=== PATIENT | male | born 1985 | race Caucasian/White ===

== ENCOUNTER 2018-07-30 20:45 | Emergency (ER) | payer SELFPAY ==
--- NOTE | 2018-07-30 21:20 | RAD ---
Exam:Left shoulder 3 views HISTORY: Pain COMPARISON: None FINDINGS: Anterior-inferior dislocation of the humeral head with respect to the glenoid. Postreductio n films are recommended. IMPRESSION: Dislocation. Postreduction films are recommended.
[2018-07-30] MEDS ORDERED: Ketamine 50 MG/ML (10ML VIAL) ONE (21:37)
--- NOTE | 2018-07-30 22:34 | RAD ---
Exam:One view left shoulder HISTORY: Status post reduction COMPARISON: 07/30/2018 FINDINGS: Based on single image, there appears to be interval reduction. No fracture. IMPRESSION: There appears to be interval reduction based on the single image.
== END 2018-07-30 23:55 | disposition home or self-care (01) ==
LOC: MADERS 20:45
DX: S43.015A Anterior dislocation of left humerus, initial encounter (principal); S43.035A Inferior dislocation of left humerus, initial encounter; F17.210 Nicotine dependence, cigarettes, uncomplicated; X58.XXXA Exposure to other specified factors, initial encounter
CPT/HCPCS: 23650; 99152

== ENCOUNTER 2023-07-20 08:10 | Emergency (ER) | payer OTHER, SELFPAY | END 2023-07-20 08:46 | disposition home or self-care (01) | LOC: MADERS 08:10 | DX: J02.9 Acute pharyngitis, unspecified (principal); K02.9 Dental caries, unspecified; F17.210 Nicotine dependence, cigarettes, uncomplicated | CPT/HCPCS: 87081; 87430; 87804; 99283 ==

== ENCOUNTER 2023-08-03 17:43 | Emergency (ER) | payer OTHER ==
[2023-08-03] MEDS ORDERED: fentaNYL 50 mcg/mL 1 mL Vial ONE ×4 (18:12→21:46)
[2023-08-03] MEDS ORDERED: Midazolam HCl 5 mg/ml Vial ONE ×2 (19:32→20:37)
== END 2023-08-03 21:55 | disposition short-term general hospital (02) ==
LOC: MADERS 17:43
DX: S43.015A Anterior dislocation of left humerus, initial encounter (principal); F17.210 Nicotine dependence, cigarettes, uncomplicated; X58.XXXA Exposure to other specified factors, initial encounter
CPT/HCPCS: 23650; 96374; 96375; 96376; 99152; 99153; J2250; J3010